=== PATIENT | female | born 1970 | race Caucasian/White ===

== ENCOUNTER 2016-06-21 16:04 | Emergency (ER) | payer OTHER ==
--- NOTE | 2016-06-21 16:45 | DIAGNOSTIC IMAGING REPORT ---
PROCEDURE: XR CHEST 2 VIEW INDICATION: FEVER TECHNIQUE: PA and lateral views. COMPARISON: None. FINDINGS: Lungs are clear. Heart and mediastinum are normal. Thorax is normal. IMPRESSION: 1. Negative chest.
--- NOTE | 2016-06-21 17:46 | ED NURSING NOTES ---
Clinical Report - Nurses [facility] [address] [place] [address] 06/21/2016 16:09 [id number] TRI[facility] Triage time 16:10 Jun 21 2016. Acuity: LEVEL 3. Chief Complaint: SHORTNESS OF BREATH and DIFFICULTY BREATHING. Alert. ANA MARÍA COMA SCORE: [place] Coma Scale: 15- eyes open spontaneously (4); best verbal response- oriented x 4 (5); best motor response- obeys commands (6). --16:31 Calvin Zamudio R.N. 16:13 06/21/16. BP: 116/56. HR: 91. RR: 16. O2 saturation: 100%. Temp: 98.8 F (oral). Pain level now: 10. Additional comments: Chest pain. --16:31 Calvin Zamudio R.N. Weight: 97.9 kg stated. Height/Length: 65 inches Per Patient. BMI: 36. --16:23 Calvin Zamudio R.N. Medications Nabumetone Oral (Tablet 750 mg) 1 tablet, 2 x daily. --16:19 Calvin Zamudio R.N. Allergies No Known Drug Allergy. --16:19 Calvin Zamudio R.N. Medication/allergy information source: the patient. --16:31 Calvin Zamudio R.N. History Arrived by private vehicle. Historian: patient. Unaccompanied. Primary physician (Tasha). ( SOB associated with a cough, fever and weakness. Pt states that she has a hx of pneumonia and this feels much like it.). Onset. (couple of weeks ago). She has had chills, a cough and chest pain. 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 PAST MEDICAL HX: Immunizations: status is unknown and seasonal influenza: first dose. Last normal menstrual period was 3 weeks ago. SOCIAL HX: Former smoker, end date 1993. No alcohol use or drug use. No infectious disease exposure. ABUSE ASSESSMENT: No report of abuse. FALL RISK ASSESSMENT: Fall risk assessment completed. No fall risk identified. NUTRITIONAL RISK ASSESSMENT: The nutritional risk assessment revealed no deficiencies. FUNCTIONAL ASSESSMENT: Functional assessment: no impairments noted. LEARNING NEEDS ASSESSMENT: The learning needs assessment revealed no barriers. SKIN INTEGRITY ASSESSMENT: Skin integrity risk assessment completed. No skin integrity risk identified. --16:31 Calvin Zamudio R.N. PROBLEMS: Plantar Fasciitis. Asthma. --16:21 Calvin Zamudio R.N. ADDITIONAL SURGERIES: Cholecystectomy. --16:26 Calvin Zamudio R.N. Interventions ID band on patient. To treatment room. --16:31 Calvin Zamudio R.N. NURSING PROGRESS NOTES 16:19 06/21/2016 Site #1 started via IV in the left hand with an 20g angiocath, with aseptic technique; one attempt. Saline lock flushed with 10 mL saline (Unable to draw blood from this site.). --16:29 Calvin Zamudio R.N. 16:30 06/21/2016 Started bag #1 1000 mL IV Fluids IV NS (Saline); at 1000 mL/hr over 60 minute(s) via site #1 via IV pump. --16:30 Calvin Zamudio R.N. 16:35 06/21/16. Patient transported to radiology by stretcher with tech. --16:37 Calvin Zamudio R.N. Patient gowned. Reassurance given. Patient identifiers checked. Call light placed in reach. Side rails up. Bed placed in lowest position. Brakes of bed on. Patient ready for evaluation- chart flagged and ED physician notified. --16:39 Calvin Zamudio R.N. 16:30 06/21/16. BP: 110/60. HR: 94. RR: 17. O2 saturation: 99% on room air. --17:47 Calvin Zamudio R.N. 17:47 06/21/16. BP: 105/44. HR: 91. RR: 16. O2 saturation: 99% on room air. --17:48 Calvin Zamudio R.N. 17:35 06/21/2016 IV Fluids IV NS Discontinued: bag #1 infused. Total amount infused: 1000 mL. IV patency established. IV site checked: no pain, redness, or swelling. IV flushed thoroughly. --18:15 Calvin Zamudio R.N. 17:55 06/21/2016 Site #1 removed upon discharge. Catheter intact. Pressure dressing and bandaid applied. --18:21 Calvin Zamudio R.N. <<STRICKEN ENTRY-- 18:35 06/21/2016 IV Fluids IV NS Discontinued: bag #1 infused. Total amount infused: 1000 mL. IV patency established. IV site checked: no pain, redness, or swelling. IV flushed thoroughly. --18:14 Calvin Zamudio R.N. --END STRIKE>> Correction. --18:15 Calvin Zamudio R.N. DISPOSITION / DISCHARGE 17:55 06/21/16. BP: 119/56. HR: 88. RR: 19. O2 saturation: 100% on room air. Temp: 98.7 F (oral). Pain level now: 06/15. --18:05 Clavin Zamudio R.N. Departure time: 1800. --18:05 Calvin Zamudio R.N. 18:00 06/21/16. Condition at departure: improved. No learning barriers present. Discharge instructions provided and reviewed with the patient. Reviewed medication(s) (prescription given to pt). Reviewed referral to family practice for followup. Patient verbalized understanding. Written instructions provided in [place]. The patient was discharged by the physician library technical assistant. She was discharged home and unaccompanied at time of discharge. She left the Emergency Department ambulatory and via private vehicle. Patient driving. --18:08 Calvin Zamudio R.N. Locked/Released at 06/21/2016 18:24 by Calvin Zamudio R.N.
--- NOTE | 2016-06-21 17:46 | ED CLINICAL REPORT ---
Clinical Report - Physicians/Mid Levels [facility] [address] [place] [address] 06/21/2016 16:09 [id number] Time Seen: 16:29 Jun 21 2016. Arrived- By private vehicle. Historian- patient. HISTORY OF PRESENT ILLNESS Chief Complaint: COUGH. This started 2 weeks and is still present. The patient has had sputum production and a cough. (Patient reports being ill over the last 2 weeks, with a cough, progressing, and worsening. Reports in addition she has had fatigue, decreased appetite, inability to attend work, has been laying around at home. Multiple sick contacts at work. Patient denies any hemoptysis. He denies any chest pain. Denies a headache or neck pain. Denies sore throat or otalgia.). REVIEW OF SYSTEMS No headache or vomiting. All systems otherwise negative, except as recorded above. PAST HISTORY Problems: Plantar Fasciitis. Asthma. Additional Surgeries: Cholecystectomy. Medications: Nabumetone Oral (Tablet 750 mg) 1 tablet, 2 x daily. Allergies: No Known Drug Allergy. SOCIAL HISTORY Former smoker. No alcohol use or drug use. ADDITIONAL NOTES The nursing notes have been reviewed. PHYSICAL EXAM Appearance: Alert. Eyes: Eyes normal inspection. ENT: Pharynx normal. Uvula midline. No tonsillar exudate. Neck: Normal inspection. CVS: Normal heart rate and rhythm. Heart sounds normal. Respiratory: No respiratory distress. Breath sounds normal. No retractions, rales, rhonchi or wheezes. Abdomen: Soft. No abdominal tenderness or rebound tenderness. Skin: Skin warm. Normal skin color. Neuro: Oriented X 3. LABS, X-RAYS, AND EKG Chest X-ray: (IMPRESSION: 1. Negative chest. Electronically Final signed by:Mingo Whitney MD 06/21/2016 4:45:23 PM). Laboratory Tests: CBC w Diff: (CHYNA: 06/21/2016 16:56) ( MsgRcvd 06/21/2016 17:13) Final results Test Result Flag Units (Reference) WHITE BLOOD COUNT 7.1 K/uL (4.5-11.5) RED BLOOD COUNT 4.12 M/uL (4.00-5.20) HEMOGLOBIN 12.6 gm/dL (12.0-16.0) HEMATOCRIT 37.7 % (36.0-46.0) MEAN CELL VOLUME 92 fL (80-100) MEAN CORPUSCULAR HGB 31 pg (26-34) MEAN CORPUSCULAR HGB CONC 33 g/dL (31-37) RED CELL DISTRIBUTION WIDTH 12.6 % (11.6-14.8) PLATELET COUNT 309 K/uL (150-400) NEUTROPHIL % 77.4 H % (50-75) LYMPH % 17.0 L % (25-40) MONO % 4.7 % (3-14) EOSINOPHIL % 0.6 % (0-4) BASOPHIL % 0.3 % (0-2) CMP: (CHYNA: 06/21/2016 16:56) ( MsgRcvd 06/21/2016 17:23) Final results Test Result Flag Units (Reference) GLUCOSE 94 mg/dL (70-110) BUN 9 mg/dL (7-18) CREATININE 0.7 mg/dL (0.6-1.3) Estimated GFR >60 mL/min Estimated GFR- >60 mL/min Note: Persistent reduction over 3 months in eGFR<60 mL/min/1.73 m2 defines CKD. Patients with eGFR values>=60 mL/min/1.73 m2 may also have CKD if evidence ofpersistent proteinuria. Additional information may be foundat www.kidney.org. SODIUM 141 mmol/L (136-145) POTASSIUM 4.2 mmol/L (3.5-5.1) CHLORIDE 106 mmol/L (98-107) CARBON DIOXIDE 25 mmol/L (21-32) CALCIUM 8.5 mg/dL (8.5-10.1) TOTAL PROTEIN 7.0 g/dL (6.4-8.2) ALBUMIN 3.7 g/dL (3.3-5.0) BILIRUBIN, TOTAL 0.3 mg/dL (0.0-1.0) ALKALINE PHOSPHATASE 62 U/L (46-116) AST (SGOT) 13 L U/L (15-37) ALT (SGPT) 17 U/L (12-78) . PROGRESS AND PROCEDURES Course of Care: nonseptic patient, with no acute systemic obvious symptoms, benign exam lungs clear, ongoing cough for 2 weeks, given such we'll treat. Patient otherwise afebrile, with a nonproductive cough in the ER. No hemoptysis. Abdomen soft. No chest pain. Symptoms ongoing for 2 weeks. Patient is encouraged to follow up with her primary care provider in the next 3-4 days. 06/21/2016 17:47 BP: 105/44. HR: 91. RR: 16. O2 saturation: 99%. 06/21/2016 16:30 BP: 110/60. HR: 94. RR: 17. O2 saturation: 99%. Patient is stable. Symptoms better. Patient/family counseled. Disposition: Discharged. CLINICAL IMPRESSION Acute bronchitis. No chronic bronchitis. INSTRUCTIONS Drink plenty of fluids for the next 48 hours. Prescription Medications: Robitussin A-C cough syrup take five (5) mL orally every 8 hours as needed for cough for 3 days. Dispense sixty (60) mL. No refill. Substitution is permissible. Zithromax 250 mg tablets: take 2 orally today, followed by 1 daily for the next 4 days. No refills. Substitution is permissible. Follow-up: Follow up with your doctor in three days. Understanding of the discharge instructions verbalized. (Electronically signed by Hali Sandoval P.A.-C 06/21/2016 17:51)
--- NOTE | 2016-06-21 17:46 | ED NURSING NOTES ---
Clinical Report - Nurses [facility] [address] [place] [address] 06/21/2016 16:09 [id number] Triage time 16:10 Jun 21 2016. Acuity: LEVEL 3. Chief Complaint: SHORTNESS OF BREATH and DIFFICULTY BREATHING. Alert. ANA MARÍA COMA SCORE: [place] Coma Scale: 15- eyes open spontaneously (4); best verbal response- oriented x 4 (5); best motor response- obeys commands (6). --16:31 Calvin Zamudio R.N. 16:13 06/21/16. BP: 116/56. HR: 91. RR: 16. O2 saturation: 100%. Temp: 98.8 F (oral). Pain level now: 10. Additional comments: Chest pain. --16:31 Calvin Zamudio R.N. Weight: 97.9 kg stated. Height/Length: 65 inches Per Patient. BMI: 36. --16:23 Calvin Zamudio R.N. Medications Nabumetone Oral (Tablet 750 mg) 1 tablet, 2 x daily. --16:19 Calvin Zamudio R.N. Allergies No Known Drug Allergy. --16:19 Calvin Zamudio R.N. Medication/allergy information source: the patient. --16:31 Calvin Zamudio R.N. History Arrived by private vehicle. Historian: patient. Unaccompanied. Primary physician (Tasha). ( SOB associated with a cough, fever and weakness. Pt states that she has a hx of pneumonia and this feels much like it.). Onset. (couple of weeks ago). She has had chills, a cough and chest pain. 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 PAST MEDICAL HX: Immunizations: status is unknown and seasonal influenza: first dose. Last normal menstrual period was 3 weeks ago. SOCIAL HX: Former smoker, end date 1993. No alcohol use or drug use. No infectious disease exposure. ABUSE ASSESSMENT: No report of abuse. FALL RISK ASSESSMENT: Fall risk assessment completed. No fall risk identified. NUTRITIONAL RISK ASSESSMENT: The nutritional risk assessment revealed no deficiencies. FUNCTIONAL ASSESSMENT: Functional assessment: no impairments noted. LEARNING NEEDS ASSESSMENT: The learning needs assessment revealed no barriers. SKIN INTEGRITY ASSESSMENT: Skin integrity risk assessment completed. No skin integrity risk identified. --16:31 Calvin Zamudio R.N. PROBLEMS: Plantar Fasciitis. Asthma. --16:21 Calvin Zamudio R.N. ADDITIONAL SURGERIES: Cholecystectomy. --16:26 Calvin Zamudio R.N. Interventions ID band on patient. To treatment room. --16:31 Calvin Zamudio R.N. NURSING PROGRESS NOTES 16:19 06/21/2016 Site #1 started via IV in the left hand with an 20g angiocath, with aseptic technique; one attempt. Saline lock flushed with 10 mL saline (Unable to draw blood from this site.). --16:29 Calvin Zamudio R.N. 16:30 06/21/2016 Started bag #1 1000 mL IV Fluids IV NS (Saline); at 1000 mL/hr over 60 minute(s) via site #1 via IV pump. --16:30 Calvin Zamudio R.N. 16:35 06/21/16. Patient transported to radiology by stretcher with tech. --16:37 Calvin Zamudio R.N. Patient gowned. Reassurance given. Patient identifiers checked. Call light placed in reach. Side rails up. Bed placed in lowest position. Brakes of bed on. Patient ready for evaluation- chart flagged and ED physician notified. --16:39 Calvin Zamudio R.N. 16:30 06/21/16. BP: 110/60. HR: 94. RR: 17. O2 saturation: 99% on room air. --17:47 Calvin Zamudio R.N. 17:47 06/21/16. BP: 105/44. HR: 91. RR: 16. O2 saturation: 99% on room air. --17:48 Calvin Zamudio R.N. 17:35 06/21/2016 IV Fluids IV NS Discontinued: bag #1 infused. Total amount infused: 1000 mL. IV patency established. IV site checked: no pain, redness, or swelling. IV flushed thoroughly. --18:15 Calvin Zamudio R.N. 17:55 06/21/2016 Site #1 removed upon discharge. Catheter intact. Pressure dressing and bandaid applied. --18:21 Calvin Zamudio R.N. <<STRICKEN ENTRY-- 18:35 06/21/2016 IV Fluids IV NS Discontinued: bag #1 infused. Total amount infused: 1000 mL. IV patency established. IV site checked: no pain, redness, or swelling. IV flushed thoroughly. --18:14 Calvin Zamudio R.N. --END STRIKE>> Correction. --18:15 Calvin Zamudio R.N. DISPOSITION / DISCHARGE 17:55 06/21/16. BP: 119/56. HR: 88. RR: 19. O2 saturation: 100% on room air. Temp: 98.7 F (oral). Pain level now: 06/15. --18:05 Calvin Zamudio R.N. Departure time: 1800. --18:05 Calvin Zamudio R.N. 18:00 06/21/16. Condition at departure: improved. No learning barriers present. Discharge instructions provided and reviewed with the patient. Reviewed medication(s) (prescription given to pt). Reviewed referral to family practice for followup. Patient verbalized understanding. Written instructions provided in Angolan. The patient was discharged by the physician assistant dean of students. She was discharged home and unaccompanied at time of discharge. She left the Emergency Department ambulatory and via private vehicle. Patient driving. --18:08 Calvin Zamudio R.N. Locked/Released at 06/21/2016 18:24 by Calvin Zamudio R.N.
--- NOTE | 2016-06-21 17:46 | ED ORDER SUMMARY ---
..... Patient: WOODY FERNANDEZ OrderSheet [facility] VisitID: [id number] [place] [address] 45y, F Registration Date/Time: 06/21/2016 ORDER SHEET Weight: 97.9 kg (stated) Allergies: No Known Drug Allergy GENERAL ORDERS: Chest 2V Urgent (16:24 06/21/2016 EKoroleva P.A.-C) (Ack 16:27 LTapper) (17:26 MCampbell) CBC w Diff Urgent (16:25 06/21/2016 EKoroleva P.A.-C) (Ack 16:27 LTapper) (17:53 JRomanelli R.N.) (17:54 SRoberts R.N.) CMP Urgent (16:25 06/21/2016 EKoroleva P.A.-C) (Ack 16:27 LTapper) (17:53 JRomanelli R.N.) (17:54 SRoberts R.N.) Urine Urgent (16:25 06/21/2016 EKoroleva P.A.-C) (Ack 16:27 LTapper) (17:53 JRomanelli R.N.) (17:54 SRoberts R.N.) Vitals (17:25 06/21/2016 EKoroleva P.A.-C) (Ack 17:36 LTapper) (17:53 JRomanelli R.N.) (17:54 SRoberts R.N.) MEDICATION ORDERS: IV FLUIDS: IV NS : initial bolus 1000 mL (1000 mL/hr), then 1000 mL/hr for X1 (NOW); Naman (16:24 06/21/2016 EKoroleva P.A.-C) (16:30 JRomanelli R.N.) ORDER SHEET NOTES: [Electronically signed by Hali Sandoval PApA.-C (17:51 06/21/2016)] [Electronically signed by Calvin Zamudio R.N. (18:24 06/21/2016)] [Electronically locked/signed by Calvin Zamudio R.N. (18:24 06/21/2016)]
--- NOTE | 2016-06-21 17:46 | ED ORDER SUMMARY ---
..... Patient: WOODY FERNANDEZ OrderSheet [facility] VisitID: [id number] [place] [address] 45y, F Registration Date/Time: 06/21/2016 ORDER SHEET Weight: 97.9 kg (stated) Allergies: No Known Drug Allergy GENERAL ORDERS: Chest 2V Urgent (16:24 06/21/2016 EKoroleva P.A.-C) (Ack 16:27 LTapper) (17:26 MCampbell) CBC w Diff Urgent (16:25 06/21/2016 EKoroleva P.A.-C) (Ack 16:27 LTapper) (17:53 JRomanelli R.N.) (17:54 SRoberts R.N.) CMP Urgent (16:25 06/21/2016 EKoroleva P.A.-C) (Ack 16:27 LTapper) (17:53 JRomanelli R.N.) (17:54 SRoberts R.N.) Urine Urgent (16:25 06/21/2016 EKoroleva P.A.-C) (Ack 16:27 LTapper) (17:53 JRomanelli R.N.) (17:54 SRoberts R.N.) Vitals (17:25 06/21/2016 EKoroleva P.A.-C) (Ack 17:36 LTapper) (17:53 JRomanelli R.N.) (17:54 SRoberts R.N.) MEDICATION ORDERS: IV FLUIDS: IV NS : initial bolus 1000 mL (1000 mL/hr), then 1000 mL/hr for X1 (NOW); Naman (16:24 06/21/2016 EKoroleva P.A.-C) (16:30 JRomanelli R.N.) ORDER SHEET NOTES: [Electronically signed by Hali Sandoval PApA.-C (17:51 06/21/2016)] [Electronically signed by Calvin Zamudio R.N. (18:24 06/21/2016)] [Electronically locked/signed by Calvin Zamudio R.N. (18:24 06/21/2016)]
--- NOTE | 2016-06-21 18:24 | ED DISCHARGE INSTRUCTIONS ---
Patient: WOODY FERNANDEZ General Instructions [facility] VisitID: [id number] [place] [address] 45y, F Registration Date/Time: 06/21/2016 Acute bronchitis. No chronic bronchitis. INSTRUCTIONS Drink plenty of fluids for the next 48 hours. Prescription Medications: Robitussin A-C cough syrup take five (5) mL orally every 8 hours as needed for cough for 3 days. Dispense sixty (60) mL. No refill. Substitution is permissible. Zithromax 250 mg tablets: take 2 orally today, followed by 1 daily for the next 4 days. No refills. Substitution is permissible. Follow-up: Follow up with your doctor in three days. Understanding of the discharge instructions verbalized. ADDITIONAL INFORMATION Bronchitis (Adult: Abx Tx) BRONCHITIS is an infection of the air passages (bronchial tubes). It often occurs during the common cold. Symptoms include cough with mucus (phlegm) and low-grade fever. Bronchitis usually lasts 7-14 days. Mild cases can be treated with simple home remedies. More severe infection is treated with an antibiotic. Home Care: If symptoms are severe, rest at home for the first 2-3 days. When you resume activity, don't let yourself get too tired. Do not smoke. Avoid being exposed to the smoke of others. You may use acetaminophen (Tylenol) or ibuprofen (Motrin, Advil) to control fever or pain, unless another medicine was prescribed for this. [NOTE: If you have chronic liver or kidney disease or ever had a stomach ulcer or GI bleeding, talk with your doctor before using these medicines.] Your appetite may be poor, so a light diet is fine. Avoid dehydration by drinking 6-8 glasses of fluids per day (water, soft, drinks, juices, tea, soup, etc.). Extra fluids will help loosen secretions in the lungs. [id number] cough medicines that containdextromethorphan(such as Robitussin DM) and decongestants (Actifed or Sudafed) may help relieve cough and congestion. [NOTE: Do not use decongestants if you have high blood pressure.] Finish all antibiotic medicine, even if you are feeling better after only a few days. Follow Up with your doctor or as directed if you dont start to feel better after three days. [NOTE: If you are age 65 or older, or if you have chronic asthma or COPD, we recommend a PNEUMOCOCCAL VACCINATION every five years and a yearly INFLUENZAVACCINATION (FLU-SHOT) every . Ask your doctor about this. If you had an X-ray, a radiologist will review it. You will be notified of any new findings that may affect your care.] Get Prompt Medical Attention if any of the following occur: Fever over 100.4F (38.0C) for more than three days Trouble breathing, wheezing or pain with breathing Coughing up blood or increased amounts of colored sputum Weakness, drowsiness, headache, facial pain, ear pain or a stiff neck You have been given the following additional information: Bronchitis, Antiobiotic Treatment (Adult) (Electronically signed by Hali Sandoval P.A.-C 06/21/2016 17:51)
--- NOTE | 2016-06-21 18:24 | ED MAR SUMMARY ---
..... Medication Administration Record [facility] [address] [place] [address] Patient: WOODY FERNANDEZ Visit ID: [id number] 45y, F Weight: 97.9 kg Height/Length: 65 in BMI: 36 ALLERGIES: No Known Drug Allergy Start 16:30 06/21/2016 Calvin Zamudio RApN., Stop 17:35 06/21/2016 Calvin Zamudio RApN. Medication Administered: IV NS (SALINE), Dose: IV Fluids over 60 minute(s), Rate: 1000 mL/hr, Dispensed: 1000 mL bag, Site: #1 left hand. Medication Ordered: IV NS : initial bolus 1000 mL (1000 mL/hr), then 1000 mL/hr for X1 (NOW); Naman.
--- NOTE | 2016-06-21 18:24 | ED MED RECONCILIATION SUMMARY ---
Patient: WOODY FERNANDEZ Medication Reconciliation Report [facility] VisitID: [id number] [address] [place] [address] 45y, F Registration Date/Time: 06/21/2016 Weight: 97.9 kg Height/Length: 65 in. BMI: 36.0 ALLERGIES: No Known Drug Allergy The patient's Home Medications are listed below: THE FOLLOWING MEDICATIONS NEED TO BE RECONCILED: Nabumetone Oral (750 mg) 1 tablet, 2 x daily The source(s) of the original Home Medication information: patient The following Medications were given to the patient in the Emergency Department: IV NS IV Fluids bolus 0, then 1000 mL/hr, administered: 06/21/2016 4:30:00 PM The following Medications were prescribed to the patient: Robitussin A-C cough syrup take five (5) mL orally every 8 hours as needed for cough for 3 days. Dispense sixty (60) mL. No refill. Substitution is permissible. -- Hali Sandoval, P.A.-Jitendra Zithromax 250 mg tablets: take 2 orally today, followed by 1 daily for the next 4 days. No refills. Substitution is permissible. -- Hali Sandoval, P.A.-C
--- NOTE | 2016-06-21 18:24 | ED MED RECONCILIATION SUMMARY ---
Patient: WOODY FERNANDEZ Medication Reconciliation Report [facility] VisitID: [id number] [address] [place] [address] 45y, F Registration Date/Time: 06/21/2016 Weight: 97.9 kg Height/Length: 65 in. BMI: 36.0 ALLERGIES: No Known Drug Allergy The patient's Home Medications are listed below: THE FOLLOWING MEDICATIONS NEED TO BE RECONCILED: Nabumetone Oral (750 mg) 1 tablet, 2 x daily The source(s) of the original Home Medication information: patient The following Medications were given to the patient in the Emergency Department: IV NS IV Fluids bolus 0, then 1000 mL/hr, administered: 06/21/2016 4:30:00 PM The following Medications were prescribed to the patient: Robitussin A-C cough syrup take five (5) mL orally every 8 hours as needed for cough for 3 days. Dispense sixty (60) mL. No refill. Substitution is permissible. -- Hali Sandoval, P.A.-Jitendra Zithromax 250 mg tablets: take 2 orally today, followed by 1 daily for the next 4 days. No refills. Substitution is permissible. -- Hali Sandoval, P.A.-C
--- NOTE | 2016-06-21 18:24 | ED MAR SUMMARY ---
..... Medication Administration Record [facility] [address] [place] [address] Patient: WOODY FERNANDEZ Visit ID: [id number] 45y, F Weight: 97.9 kg Height/Length: 65 in BMI: 36 ALLERGIES: No Known Drug Allergy Start 16:30 06/21/2016 Calvin Zamudio RApN., Stop 17:35 06/21/2016 Calvin Zamudio RApN. Medication Administered: IV NS (SALINE), Dose: IV Fluids over 60 minute(s), Rate: 1000 mL/hr, Dispensed: 1000 mL bag, Site: #1 left hand. Medication Ordered: IV NS : initial bolus 1000 mL (1000 mL/hr), then 1000 mL/hr for X1 (NOW); Naman.
== END 2016-06-21 18:00 | disposition home or self-care (01) ==
LOC: ED SRH 16:04
DX: J20.9 Acute bronchitis, unspecified (principal); Z87.891 Personal history of nicotine dependence
CPT/HCPCS: 90074; 90100; 95059